=== PATIENT | female | born 1965 | race Caucasian/White ===

== ENCOUNTER 2016-11-05 17:45 | Emergency (ER) | payer MEDICAID ==
[2016-11-05 18:45] VITALS: BP 88/56
== END 2016-11-05 18:45 | disposition home or self-care (01) ==
LOC: ED 17:45
DX: L50.9 Urticaria, unspecified (principal)
CPT/HCPCS: J1200

== ENCOUNTER 2017-07-31 10:03 | Emergency (ER) | payer MEDICAID ==
[~2017-07-31] VITALS: Ht 147.3 cm; Wt 47.6 kg
[2017-07-31 10:21] VITALS: Ht 147.3 cm; Wt 47.6 kg
[2017-07-31 14:56] VITALS: BP 104/70
== END 2017-07-31 14:56 | disposition home or self-care (01) ==
LOC: ED 10:03
DX: B34.9 Viral infection, unspecified (principal); J02.8 Acute pharyngitis due to other specified organisms
CPT/HCPCS: 87804; J1100; J1885

== ENCOUNTER 2018-07-19 14:21 | Emergency (ER) | payer MEDICAID ==
[~2018-07-19] VITALS: Ht 152.4 cm; Wt 46.3 kg
[2018-07-19 14:51] VITALS: BP 107/60
== END 2018-07-19 18:26 | disposition home or self-care (01) ==
LOC: ED 14:21
DX: B34.9 Viral infection, unspecified (principal)